=== PATIENT | male | born 1975 ===

== ENCOUNTER 2018-07-28 09:35 | Emergency (ER) | payer OTHER ==
[2018-07-28 09:40] VITALS: O2SAT 97
[2018-07-28] MEDS ORDERED: Sodium Chloride 0.9% 1,000 ML IV ONE (10:20)
[2018-07-28] MEDS ORDERED: Sodium Chloride 0.9% 1,000 ML ONE (10:36)
--- NOTE | 2018-07-28 10:47 | C.PDOC ---
History Of Present Illness 43 year old male, with no significant past medical history, presents to the ED for evaluation of abdominal cramping and diarrhea which began 4 days ago. Patient states symptoms began after eating [place] food, and states nobody else ate the food. Patient reports having several episodes of diarrhea, stating everything just goes right through him. Patient was evaluated at urgent care two days ago, advised to take Imodium. Patient has not found relief and presents to the ED for further evaluation. He denies fever, chills, nausea, vomiting, dizziness, syncope, urinary symptoms or loss of appetite. Chief Complaint (Nursing): Abdominal Pain History Per: Patient History/Exam Limitations: no limitations Onset/Duration Of Symptoms: Days (4) Current Symptoms Are (Timing): Still Present Location Of Pain/Discomfort: Diffuse Radiation Of Pain To:: None Quality Of Discomfort: Cramping, "Pain" Associated Symptoms: Diarrhea. denies: Fever, Chills, Nausea, Vomiting Last Bowel Movement: Today Recent travel outside of the [place]: No Additional History Per: Patient Past Medical History Reviewed: Historical Data, Nursing Documentation, Vital Signs Vital Signs: Last Vital Signs Temp 98.4 F 07/28/18 09:37 Pulse 112 H 07/28/18 09:37 Resp 20 07/28/18 09:37 BP 142/100 H 07/28/18 09:37 Pulse Ox 97 07/28/18 09:37 - Medical History PMH: Anxiety Surgical History: No Surg Hx Family History: States: Unknown Family Hx - Social History Hx Alcohol Use: No Hx Substance Use: No - Immunization History Hx Tetanus Toxoid Vaccination: No Hx Influenza Vaccination: No Hx Pneumococcal Vaccination: No Review Of Systems Constitutional: Negative for: Fever, Chills, Other (loss of appetite ) Gastrointestinal: Positive for: Abdominal Pain, Diarrhea. Negative for: Nausea, Vomiting Genitourinary: Negative for: Dysuria, Frequency, Hematuria Neurological: Negative for: Dizziness, Other (syncope ) Physical Exam - Physical Exam Appears: Non-toxic, No Acute Distress Skin: Normal Color, Warm, Dry Head: Atraumatic, Normacephalic Eye(s): bilateral: Normal Inspection Oral Mucosa: Moist Neck: Supple Chest: Symmetrical, No Deformity, No Tenderness Cardiovascular: Rhythm Regular, No Murmur Respiratory: Normal Breath Sounds, No Rales, No Rhonchi, No Wheezing Gastrointestinal/Abdominal: Soft, No Tenderness, No Guarding, No Rebound Back: No CVA Tenderness Extremity: Normal ROM, Capillary Refill (less than 2 seconds ) Neurological/Psych: Oriented x3, Normal Speech, Normal Cognition ED Course And Treatment - Laboratory Results Result Diagrams: 07/28/18 10:49 07/28/18 10:49 O2 Sat by Pulse Oximetry: 97 (on RA ) Pulse Ox Interpretation: Normal Medical Decision Making Medical Decision Making: Progress: Bloodwork ordered and reviewed. IV Fluids given. Results of w/u d/w patient. PO K+ given for hypokalemia. Patient reassessed after IVF, states he feels better and is ready to go home. Patient is provided w/verbal and written instruction to f/u w/his pcp and to [facility] for new, worsening or concerning symptoms. Patient verbalized understanding. Disposition Counseled Patient/Family Regarding: Studies Performed, Diagnosis, Need For Followup - Disposition Referrals: Chito Melchor MD [Medical Doctor] - Disposition: HOME/ ROUTINE Disposition Time: 12:45 Condition: IMPROVED Additional Instructions: ELLEN SARAVIA, thank you for letting us take care of you today. Your provider was Yadi Chan MD and you were treated for ABD PAIN. The emergency medical care you received today was directed at your acute symptoms. If you were prescribed any medication, please fill it and take as directed. It may take several days for your symptoms to resolve. Return to the Emergency Department if your symptoms worsen, do not improve, or if you have any other problems. Please contact your doctor to 2 -3 days for a follow up appointment. Bring any paperwork you were given at discharge with you along with any medications you are taking to your follow up visit. Our treatment cannot replace ongoing medical care by a primary care provider outside of the emergency department. Thank you for allowing the [facility] team to be part of your care today. Instructions: Diarrhea in Adolescents and Adults, Hypokalemia (DC) Forms: [employer] ([place]), General Discharge Instructions - POA Present On Arrival: None - Clinical Impression Clinical Impression: Abdominal discomfort, Diarrhea, Hypokalemia - Scribe Statement The provider has reviewed the documentation as recorded by the Scribe (Ilda Stock) Provider Attestation: All medical record entries made by the Scribe were at my direction and personally dictated by me. I have reviewed the chart and agree that the record accurately reflects my personal performance of the history, physical exam, medical decision making, and the department course for this patient. I have also personally directed, reviewed, and agree with the discharge instructions and disposition.
[2018-07-28 10:57] LABS: BASO % 0.1 % (0.0-2.0); EOS # 0.1 K/uL (0.0-0.7); EOS % 1.1 % (0.0-4.0); HEMOGLOBIN 16.3 g/dL (12.0-18.0); LYMPH # 1.1 K/uL (1.0-4.3); LYMPH % 10.5 % (20.0-40.0); MEAN CELL VOLUME 90.2 fL (80.0-94.0); MEAN CORPUSCULAR HEMOGLOBIN 30.1 pg (27.0-31.0); MEAN CORPUSCULAR HGB CONC 33.4 g/dL (33.0-37.0); MEAN PLATELET VOLUME 9.1 fL (7.2-11.7); MONO % 9.8 % (0.0-10.0); NEUT % 78.5 % (50.0-75.0); NRBC % 0.1 % (0.0-2.0); RBC 5.41 Mil/uL (4.40-5.90); WHITE BLOOD COUNT 10.2 K/uL (4.8-10.8)
[2018-07-28 11:11] LABS: ALB/GLOB RATIO 1.4 (1.0-2.1); ALBUMIN 5.2 g/dL (3.5-5.0); ALT/SGPT 51 U/L (21-72); AST/SGOT 41 U/L (17-59); BLOOD UREA NITROGEN 20 mg/dL (9-20); CALCIUM 9.4 mg/dl (8.6-10.4); GFR NON-AFRICAN AMERICAN > 60; LIPASE 38 U/L (23-300)
[2018-07-28 12:08] VITALS: BP 123/75; PULSE 92; RESP 18; TEMP 98.2
[2018-07-28] MEDS ORDERED: Potassium Chloride 20 mEq ER Tab PO STA (12:26)
[2018-07-28] MEDS ORDERED: Potassium Chloride 20 mEq ER Tab PO ONE (12:37)
== END 2018-07-28 13:00 | disposition home or self-care (01) ==
LOC: C.ER 09:35 → EDBD 09:35 → C.ER 13:00
DX: R10.9 Unspecified abdominal pain (principal); R19.7 Diarrhea, unspecified; E87.6 Hypokalemia
CPT/HCPCS: 80053; 83690; 85025; 99284; J7030